=== PATIENT | female | born 1990 | race Caucasian/White ===

== ENCOUNTER 2024-06-23 01:21 | Emergency (ER) | payer MEDICAID ==
[~2024-06-23] VITALS: Ht 154.9 cm; Wt 55.0 kg
[2024-06-23 02:00] VITALS: BP 126/85; PULSE 74; RESP 18; TEMP 98.2; O2SAT 99
[2024-06-23 02:16] LABS: CHLORIDE 108 mEq/L (98-107); POTASSIUM 3.8 mEq/L (3.5-5.1); SODIUM 141 mEq/L (136-145)
[2024-06-23 02:17] LABS: CALCIUM 9.3 mg/dL (8.7-10.4); CARBON DIOXIDE 25 mEq/L (21-32)
[2024-06-23 02:22] LABS: CREATININE 0.8 mg/dL (0.6-1.0); GLUCOSE 102 mg/dL (70-105); UREA NITROGEN BLOOD 9 mg/dL (9-23)
[2024-06-23 03:29] LABS: BASOPHILS % 0.4 % (0.0-2.0); EOSINOPHILS % 0.6 % (0.0-5.0); HEMATOCRIT. 41.5 % (36.0-48.0); HEMOGLOBIN. 14.3 g/dL (12.0-16.0); MEAN CORPUSCULAR HEMOGLOBIN 31.8 pg (28.0-32.0); MEAN CORPUSCULAR HGB CONC 34.5 g/dL (31.0-37.0); MEAN CORPUSCULAR VOLUME 92.1 fL (81.0-99.0); MEAN PLATELET VOLUME 7.7 fl (7.4-10.4); MONOCYTES % 4.8 % (2.0-8.0); NEUTROPHILS % 81.2 % (40.0-76.0); PLATELET 273 x1000/uL (130-400); RED CELL DISTRIBUTION WIDTH 12.5 % (11.6-14.6); WHITE BLOOD COUNT 10.4 x1000/uL (4.5-11.0)
[2024-06-23 03:36] LABS: CLARITY URINE CLEAR (CLEAR); COLOR URINE YELLOW (YELLOW); GLUCOSE URINE NEGATIVE (NEGATIVE); KETONES URINE NEGATIVE (NEGATIVE); LEUKOCYTE ESTERASE URINE NEGATIVE (NEGATIVE); NITRITE URINE NEGATIVE (NEGATIVE); OCCULT BLOOD URINE NEGATIVE (NEGATIVE); PH URINE 6.5 (4.5-8.0); PROTEIN URINE NEGATIVE (NEGATIVE); SPECIFIC GRAVITY URINE 1.012 (1.005-1.030); UROBILINOGEN URINE 0.2 E.U./dL (0.2-1.0)
[2024-06-23 03:49] LABS: HCG SCREEN NEGATIVE
[2024-06-23] MEDS ORDERED: ACET-2708 MT (04:11)
== END 2024-06-23 04:53 | disposition home or self-care (01) ==
LOC: ER 01:21
DX: R07.81 Pleurodynia (principal); R10.84 Generalized abdominal pain
CPT/HCPCS: 36415; 80048; 81003; 84703; 85025; 99283